=== PATIENT | female | born 1960 | race Caucasian/White ===

== ENCOUNTER → 2018-07-24 | Outpatient (CLI) | payer OTHER ==
[~2018-07-24] MED LIST: ALB18R INH; DULO60CA51 PO; FLUT1DIS28 IH; LOR5/325 PO; PRED20TA6 PO; QUET300T17 PO
--- NOTE | 2018-07-24 10:45 | RADIOLOGY IMAGING REPORT ---
FAC[place] [facility] [place]IENT NAME: Cathy Abdullahi : 1960 MR: [id number] V: [id number] EXAM DATE: ORDERING PHYSICIAN: ADRIEL BROWN TECHNOLOGIST: Location: [facility] - [place] Patient: Cathy Abdullahi : 1960 Visit/Account:[id number] Date of Sevice: 07/24/2018 CHEST PA LAT Indication: Persistent cough, now causing rib pain in several locations Comparison: Chest x-ray 05/14/2016 Findings: Lungs: Clear. Mediastinum/pulmonary vasculature: Heart size and pulmonary vasculature are normal. Bones/soft tissues: Normal. IMPRESSION: Clear lungs. Report Dictated By: Addison Dixon at 07/24/2018 10:40 AM Report E-Signed By: Addison Dixon at 07/24/2018 10:41 AM WSN:[id number]
== END ==
LOC: RAD 09:19
PROVIDERS: ATTEND Nurse Practitioner Psychiatric/Mental Health
DX: R07.81 Pleurodynia (principal)
CPT/HCPCS: 71046

== ENCOUNTER → 2018-11-17 | Outpatient (CLI) | payer OTHER ==
--- NOTE | 2018-11-17 19:58 | RADIOLOGY IMAGING REPORT ---
FACILITY: PATIENT NAME: Cathy Abdullahi : 1960 MR: [id number] V: [id number] EXAM DATE: ORDERING PHYSICIAN: BESSIE CADENA TECHNOLOGIST: Location: [facility] - [place] Patient: Cathy Abdullahi : 1960 Visit/Account:[id number] Date of Sevice: 11/17/2018 EXAMINATION: Left Lower Extremity Venous Ultrasound HISTORY: Left leg pain and swelling. TECHNIQUE: Ultrasound evaluation of the left lower extremity veins was performed with color and spec tral Doppler and compression views. COMPARISON: None. FINDINGS: The left common femoral, femoral, proximal deep femoral, popliteal, and segmentally visualized deep c anjali veins are patent and compressible, without evidence of intraluminal thrombus. The visualized upp er greater saphenous vein is patent. No visualized Oseguera cyst along the popliteal fossa. IMPRESSION: Normal exam. No evidence of DVT in the left leg. Report Dictated By: Jacky Pearce MD at 11/17/2018 7:48 PM Report E-Signed By: Jacky Pearce MD at 11/17/2018 7:50 PM WSN:[id number]
== END ==
LOC: US 18:14
PROVIDERS: ATTEND Family Medicine
DX: M79.605 Pain in left leg (principal); R22.42 Localized swelling, mass and lump, left lower limb